=== PATIENT | male | born 1945 | race Caucasian/White ===

== ENCOUNTER 2018-11-19 14:53 | Outpatient (CLI) | payer MEDICARE ==
--- NOTE | 2018-11-20 14:41 | XRAY Report ---
Reason: OTHER SPECIFIED SOFT TISSUE DISORDERS Procedure Date: 11/19/2018 Accession Number: [id number] / [id number] Procedure: XRS - Foot 2 View RT CPT Code: FULL RESULT: EXAM: RIGHT FOOT RADIOGRAPHY EXAM DATE: 11/19/2018 03:01 PM. CLINICAL HISTORY: Other specified soft tissue disorders. Pain in the first metatarsophalangeal articulation. COMPARISON: None. TECHNIQUE: 3 views. FINDINGS: Bones: Normal. No fractures or bone lesions. No hallux valgus or metatarsus adductus. Joints: There is moderate to severe narrowing of the first metatarsophalangeal articulation, with osteophytic spurring at the dorsum of the base of the first proximal phalanx. The articulations of the foot elsewhere appear preserved. Soft Tissues: Normal. No soft tissue swelling. IMPRESSION: Focal degenerative changes at the first metatarsophalangeal articulation. RADIA
== END 2018-11-19 14:54 | disposition home or self-care (01) ==
LOC: DI.S 14:53
PROVIDERS: ATTEND Nurse Practitioner Family
DX: M19.072 Primary osteoarthritis, left ankle and foot (principal)

== ENCOUNTER 2019-08-27 10:21 | Outpatient (CLI) | payer MEDICARE ==
--- NOTE | 2019-08-27 16:40 | Ultrasound Report ---
Reason: HERNIA OF ABD WALL Procedure Date: 08/27/2019 Accession Number: [id number] / [id number] Procedure: US - Abdomen Limited CPT Code: Final Report FULL RESULT: PROCEDURE: Abdomen Limited INDICATIONS: HERNIA OF ABD WALL TECHNIQUE: Real-time focused scanning was performed of the abdomen, with image documentation. COMPARISON: None FINDINGS: Sonographic images of the umbilical region were obtained. There is diastases of the rectus musculature without visualized disruption of the linea alba. No herniation is identified. IMPRESSION: Diastases of the rectus musculature without herniation. Reviewed by: Celsa Hill MD on 08/27/2019 4:38 PM PDT Approved by: Celsa Hill MD on 08/27/2019 4:38 PM PDT Station ID: [id number]
== END 2019-08-27 10:22 | disposition home or self-care (01) ==
LOC: DI 10:21
PROVIDERS: ATTEND Nurse Practitioner Family
DX: M62.08 Separation of muscle (nontraumatic), other site (principal)
CPT/HCPCS: 76705

== ENCOUNTER 2019-09-23 09:49 | Outpatient (CLI) | payer MEDICARE ==
[2019-09-23] MEDS ORDERED: IOVERSOL 320 100 ML VIAL IVP ONE ×2 (09:58→11:15)
[2019-09-23] MEDS ORDERED: IOVERSOL 320 50 ML VIAL ONE (09:58)
[2019-09-23 10:41] LABS: BILIRUBIN,URINE NEGATIVE (NEGATIVE); CLARITY,URINE CLEAR (CLEAR); GLUCOSE, URINE (UA) NEGATIVE (NEGATIVE); KETONES,URINE (UA) NEGATIVE (NEGATIVE); LEUKOCYTE ESTERASE, URINE NEGATIVE (NEGATIVE); NITRITE,URINE NEGATIVE (NEGATIVE); OCCULT BLOOD,URINE NEGATIVE (NEGATIVE); PROTEIN,URINE NEGATIVE (NEGATIVE); UROBILINOGEN,URINE 0.2 (NORMAL) E.U./dL (NORMAL)
[2019-09-23 10:43] LABS: BASOPHILS # (AUTO) 0.1 10^3/uL (0.0-0.1); BASOPHILS % (AUTO) 1.4 %; EOSINOPHILS # (AUTO) 0.2 10^3/uL (0.0-0.7); EOSINOPHILS % (AUTO) 2.3 %; HGB - HEMOGLOBIN 15.8 g/dL (14.0-18.0); LYMPHOCYTES # (AUTO) 1.9 10^3/uL (1.5-3.5); LYMPHOCYTES % (AUTO) 20.6 %; MEAN CORPUSCULAR HGB CONC 34.2 g/dL (32.0-36.0); MEAN CORPUSCULAR VOLUME 102.4 fL (80.0-94.0); MEAN PLATELET VOLUME 9.4 fL (7.4-11.4); MONOCYTES # (AUTO) 0.8 10^3/uL (0.0-1.0); MONOCYTES % (AUTO) 8.5 %; NEUTROPHILS % (AUTO) 66.8 %; PLT - PLATELET COUNT 460 10^3/uL (130-450); RED BLOOD COUNT 4.51 10^6/uL (4.70-6.10); RED CELL DISTRIBUTION WIDTH 12.4 % (12.0-15.0)
[2019-09-23 10:56] LABS: ALBUMIN 4.4 g/dL (3.2-5.5); ALBUMIN/GLOBULIN RATIO 1.5 (1.0-2.2); ALKALINE PHOSPHATASE 76 IU/L (42-121); ALT ALANINE AMINOTRANSFERASE 26 IU/L (10-60); AST ASPARTATE AMINOTRANSFERASE 21 IU/L (10-42); BILIRUBIN,TOTAL 0.8 mg/dL (0.2-1.0); BUN - BLOOD UREA NITROGEN 19 mg/dL (6-20); CARBON DIOXIDE - CO2 27 mmol/L (21-32); CHLORIDE 105 mmol/L (101-111); CREATININE 0.9 mg/dL (0.6-1.2); GAMMA GLUTAMYL TRANSPEPTIDASE 17 IU/L (8-55); GLUCOSE 123 mg/dL (70-100); SODIUM 138 mmol/L (135-145); TOTAL PROTEIN 7.3 g/dL (6.7-8.2)
[2019-09-23] MEDS ORDERED: IOVERSOL 320 50 ML VIAL PO ONE (11:15)
--- NOTE | 2019-09-23 13:49 | CT Report ---
PROCEDURE: Abdomen/Pelvis W INDICATIONS: RLQ PAIN CONTRAST: IV CONTRAST: Optiray 320 ml: 100 PO CONTRAST: Optiray 320 ml50 TECHNIQUE: After the administration of oral and intravenous contrast, 5 mm thick sections acquired from the diap hragms to the symphysis. 5 mm thick coronal and sagittal reformats were acquired. For radiation dos e reduction, the following was used: automated exposure control, adjustment of mA and/or kV accordin g to patient size. COMPARISON: Ultrasound abdomen dated 08/27/2019. FINDINGS: Image quality: Excellent. ABDOMEN: Lung bases: Mild bibasilar atelectasis most pronounced over the medial right lung base. Heart size i s normal. Moderate-sized hiatal hernia. Solid organs: Liver and spleen are normal in size and enhancement. Gallbladder is unremarkable. Bi liary system is non dilated. Pancreas enhances normally. No adrenal nodules. Kidneys demonstrate n ormal size and enhancement, without hydronephrosis. There are multiple exophytic and partially exophy tic bilateral renal hypodensities, which measure near or at fluid attenuation. No suspicious features identified. Peritoneum and bowel: Bowel loops demonstrate normal wall thickness and caliber. Scattered colonic d iverticulosis without acute diverticulitis. No free fluid or air. Asymmetric wall thickening of the posterior wall of the gastric cardia just distal to the gastroesophageal junction. There is also sugg estion of mild asymmetric wall thickening of the anterior wall of the gastric cardia. Nodes and vessels: No retroperitoneal or mesenteric adenopathy by size criteria. Aorta and inferior vena cava are normal in size. Miscellaneous: Tiny fat-containing umbilical hernia without acute inflammation. Bilateral tiny inguin al hernias without acute inflammation. PELVIS: Genitourinary: Bladder wall thickness is normal. Miscellaneous: No inguinal hernias or adenopathy. Bones: No suspicious bony lesions. No vertebral body compression fractures. Multilevel lumbar spond ylosis. IMPRESSION: 1. CT abdomen and pelvis without acute abnormalities to explain patient's right lower quadrant pain. 2. Colonic diverticulosis without acute diverticulitis. 3. Minimal asymmetric wall thickening of the posterior wall of the gastric cardia and anterior wall o f the gastric cardia just distal to the gastroesophageal junction. Consider further evaluation with d irect visualization. 4. Moderate-sized hiatal hernia. 5. Multiple renal hypodensities favored to represent cysts. Consider dedicated renal ultrasound to fu rther evaluate. 6. Very small bilateral fat-containing inguinal hernias as well as fat-containing umbilical hernia wi thout acute inflammation. Reviewed by: Hernandez Rothman MD on 09/23/2019 1:47 PM PDT Approved by: Hernandez Rothman MD on 09/23/2019 1:47 PM PDT Station ID: [id number]
== END 2019-09-23 09:50 | disposition home or self-care (01) ==
LOC: DI 09:49
PROVIDERS: ATTEND Nurse Practitioner Family
DX: R10.31 Right lower quadrant pain (principal); K57.30 Diverticulosis of large intestine without perforation or abscess without bleeding; K44.9 Diaphragmatic hernia without obstruction or gangrene; K42.9 Umbilical hernia without obstruction or gangrene; K40.20 Bilateral inguinal hernia, without obstruction or gangrene, not specified as recurrent; R93.421 Abnormal radiologic findings on diagnostic imaging of right kidney; R93.422 Abnormal radiologic findings on diagnostic imaging of left kidney; R93.3 Abnormal findings on diagnostic imaging of other parts of digestive tract; R35.0 Frequency of micturition; I10 Essential (primary) hypertension; D75.89 Other specified diseases of blood and blood-forming organs; T56 Toxic effect of metals
CPT/HCPCS: 36415; 74177; 80053; 81003; 81599; 82977; 84153; 85025; 87086; Q9967

== ENCOUNTER 2019-10-03 14:18 | Outpatient (CLI) | payer OTHER, MEDICARE ==
--- NOTE | 2019-10-03 17:41 | Ultrasound Report ---
PROCEDURE: Retroperitoneal INDICATIONS: MULTIPLE RENAL HYPO DENSITIES TECHNIQUE: Real-time scanning was performed of the retroperitoneal organs, with image documentation. COMPARISON: Ultrasound abdomen 08/27/2019, CT abdomen pelvis 08/24/2019. FINDINGS: Kidneys: Kidneys are normal in size. Right kidney measures 12.2 cm long; left kidney measures 13.3 cm long. Right renal cortical thickness is 1.6 cm; left renal cortical thickness is 0.7 cm. No sana d masses, hydronephrosis, or nephrolithiasis. Multiple bilateral simple renal cysts are identified. The largest on the left measures 6.2 x 6.5 x 6.3 cm. The largest on the right measures 7.0 x 2.9 x 4. 0 cm. Bladder: Prevoid volume 514 cc. Postvoid residual 139 cc. Bilateral ureteral jets are identified. No bladder masses are identified. Prostate measures 3.8 x 5.2 x 3.8 cm. IMPRESSION: 1. Multiple bilateral renal cysts are noted. Reviewed by: Celsa Hill MD on 10/03/2019 5:39 PM PDT Approved by: Celsa Hill MD on 10/03/2019 5:39 PM PDT Station ID: [id number]
== END 2019-10-03 14:19 | disposition home or self-care (01) ==
LOC: DI 14:18
PROVIDERS: ATTEND Nurse Practitioner Family
DX: N28.9 Disorder of kidney and ureter, unspecified (principal); N28.1 Cyst of kidney, acquired
CPT/HCPCS: 76770

== ENCOUNTER 2019-12-10 12:10 | Outpatient (CLI) | payer MEDICARE | END 2019-12-10 12:11 | disposition home or self-care (01) | LOC: COV 12:10 | PROVIDERS: ATTEND Family Medicine | DX: Z20.828 Contact with and (suspected) exposure to other viral communicable diseases (principal) ==

== ENCOUNTER 2020-10-11 11:45 | Outpatient (CLI) | payer MEDICARE ==
--- NOTE | 2020-10-11 13:35 | XRAY Report ---
PROCEDURE: Lumbar Spine 2 View INDICATIONS: LOW BACK PAIN TECHNIQUE: 2 views of the lumbar spine were acquired. COMPARISON: None. FINDINGS: Bones: 5 [id number]-[id number] vertebrae are present. Trace retrolisthesis L2 on 3, L3 on 4, and L5 on S1. Trace anterolisthesis L4 on 5. Multilevel disc height loss, moderate at most levels, severe at L5-S1 . Severe facet arthropathy from L3 through S1. Moderate endplate spurring at all levels.. No vertebr al body compression fractures. No suspicious bony lesions. Soft tissues: Overlying bowel gas pattern is normal. Surgical clips project over the right sacral a la. No suspicious soft tissue calcifications. IMPRESSION: 1. Multilevel degenerative disc and facet joint changes, most severe at L5-S1. 2. Multilevel spondylolisthesis. Reviewed by: Siria Ramon MD on 10/11/2020 1:33 PM PDT Approved by: Siria Ramon MD on 10/11/2020 1:33 PM PDT Station ID: [id number]
== END 2020-10-11 11:46 | disposition home or self-care (01) ==
LOC: DI.S 11:45
PROVIDERS: ATTEND Nurse Practitioner Family
DX: M54.5 Low back pain (principal); M51.37 Other intervertebral disc degeneration, lumbosacral region; M43.17 Spondylolisthesis, lumbosacral region

== ENCOUNTER 2021-01-03 10:24 | Outpatient (CLI) | payer MEDICARE ==
--- NOTE | 2021-01-03 10:38 | XRAY Report ---
PROCEDURE: Chest 2 View X-Ray INDICATIONS: MALIGNANT MELANOMA TECHNIQUE: 2 view(s) of the chest. COMPARISON: None. FINDINGS: Surgical changes and devices: None. Lungs and pleura: No pleural effusions or pneumothorax. Lungs are clear. Mediastinum: Mediastinal contours are normal. Heart size is normal. Bones and chest wall: No suspicious bony abnormalities. Soft tissues appear unremarkable. IMPRESSION: No acute cardiopulmonary abnormality. Reviewed by: Marco Gandhi MD on 01/03/2021 10:37 AM PDT Approved by: Marco Gandhi MD on 01/03/2021 10:37 AM PDT Station ID: [id number]
== END 2021-01-03 10:25 | disposition home or self-care (01) ==
LOC: DI.S 10:24
PROVIDERS: ATTEND Nurse Practitioner Family
DX: Z85.820 Personal history of malignant melanoma of skin (principal)

== ENCOUNTER 2021-02-23 14:53 | Outpatient (CLI) | payer MEDICARE ==
--- NOTE | 2021-02-23 16:45 | XRAY Report ---
PROCEDURE: Shoulder 3 View LT INDICATIONS: PAIN OF LEFT SHOULDER JOINT TECHNIQUE: 3 views of the shoulder were acquired. COMPARISON: None. FINDINGS: Bones: No fractures or dislocations. No suspicious bony lesions. Visualized ribs appear intact. S evere acromioclavicular and moderate glenohumeral degenerative narrowing is present. Humeral osteophy te is present in the glenohumeral joint space. Soft tissues: No suspicious soft tissue calcifications. Tendinitis is noted. IMPRESSION: Degenerative changes as above. Reviewed by: Celsa Hill MD on 02/23/2021 4:43 PM PST Approved by: Celsa Hill MD on 02/23/2021 4:43 PM PST Station ID: [id number]
== END 2021-02-23 14:54 | disposition home or self-care (01) ==
LOC: DI.S 14:53
PROVIDERS: ATTEND Nurse Practitioner Family
DX: M19.012 Primary osteoarthritis, left shoulder (principal)

== ENCOUNTER 2021-04-06 09:14 | Outpatient (CLI) | payer MEDICARE | END 2021-04-06 09:15 | disposition home or self-care (01) | LOC: LAB.S 09:14 | PROVIDERS: ATTEND Surgery | DX: Z53.9 Procedure and treatment not carried out, unspecified reason (principal) ==

== ENCOUNTER 2021-04-07 09:30 | Outpatient (CLI) | payer MEDICARE | END 2021-04-07 09:31 | disposition home or self-care (01) | LOC: LAB.S 09:30 | PROVIDERS: ATTEND Surgery | DX: Z01.812 Encounter for preprocedural laboratory examination (principal); Z12.11 Encounter for screening for malignant neoplasm of colon; I48.0 Paroxysmal atrial fibrillation; Z20.822 Contact with and (suspected) exposure to COVID-19 ==

== ENCOUNTER 2021-04-09 09:24 | Day surgery (SDC) | payer MEDICARE, OTHER ==
[2021-04-09] MEDS ORDERED: LACTATED RINGERS 1,000 ML IV ONE (09:35)
--- NOTE | 2021-04-09 10:30 | ANESTHESIA ---
Pre-Anesthesia VS, & Labs - Diagnosis screening - Procedure colonoscopy Vital Signs: Temp Pulse Resp BP Pulse Ox 36.5 C 54 L 14 145/85 H 98 04/09/21 09:34 04/09/21 09:34 04/09/21 09:34 04/09/21 09:34 04/09/21 09:34 Height: 6 ft Weight (kg): 102 kg Body Mass Index: 30.4 BMI Classification: Obese - NPO >8 hours Home Medications and Allergies Home Medications: Ambulatory Orders Amlodipine Besylate [Norvasc] 10 mg PO DAILY 03/29/21 Aspirin [[place] Aspirin] 81 mg PO DAILY 03/29/21 Hydroxyurea [Hydrea] 500 mg PO DAILY 03/29/21 Rosuvastatin Calcium [Crestor] 20 mg PO DAILY 03/29/21 Amlodipine Besylate [Norvasc] 10 mg PO DAILY 03/29/21 Aspirin [[place] Aspirin] 81 mg PO DAILY 03/29/21 Hydroxyurea [Hydrea] 500 mg PO DAILY 03/29/21 Rosuvastatin Calcium [Crestor] 20 mg PO DAILY 03/29/21 Allergies/Adverse Reactions: Allergies Allergy/AdvReac Type Severity Reaction Status Date / Time oxycodone Allergy Unknown Unknown Unverified 04/06/21 15:09 Anes History & Medical History - Anesthetic History Anesthesia Complications: reports: No previous complications - Medical History Cardiovascular: reports: Hypertension, High cholesterol, Other Pulmonary: reports: None Gastrointestinal: reports: None, Diverticulitis Urinary: reports: None Musculoskeletal: reports: Osteoarthritis Endocrine/Autoimmune: reports: None Skin: reports: Other History of Cancer?: Yes - Surgical History General: reports: Appendectomy Eyes Ears Nose Throat (EENT): reports: Tonsil/Adenoidectomy Cardiothoracic: reports: Other Orthopedic: reports: Arthroscopic surgery Exam General: Alert, Oriented x3 Dental: WNL Mouth Opening: Greater than 4 Fingerbreadths Neck Mobility: Normal Mallampati classification: II Respiratory: Lungs clear Cardiovascular: Regular rate Plan Anesthesia Type: Total IV Consent for Procedure(s) Verified and Reviewed: Yes Code Status: Attempt Resuscitation ASA classification: 3-Severe systemic disease Is this case an emergency?: No
[2021-04-09] MEDS ORDERED: LIDOCAINE-MPF 2% 5 ML VIAL ONE (10:39)
[2021-04-09] MEDS ORDERED: PROPOFOL 500 MG/50 ML 500 MG/50 ML VIAL ONE (10:39)
[2021-04-09] MEDS ORDERED: LACTATED RINGERS 800 ML IV ONE (11:02)
[2021-04-09 11:24] VITALS: BP 119/80
--- NOTE | 2021-04-09 16:24 | ANESTHESIA POST OP EVALUATION ---
Anesthesia Post Eval - Post Anesthesia Eval Vitals: Last Vital Signs Temp 36.4 C L 04/09/21 11:23 Pulse 56 L 04/09/21 11:23 Resp 16 04/09/21 11:23 BP 119/80 04/09/21 11:23 Pulse Ox 98 04/09/21 11:23 CV Function Including HR & BP: Stable Pain Control: Satisfactory Nausea & Vomiting: Negative Mental Status: Baseline Respiratory Status: Airway Patent Hydration Status: Satisfactory Anesthesia Complications: None
== END 2021-04-09 09:25 | disposition home or self-care (01) ==
LOC: SDS 09:24
PROVIDERS: ATTEND Surgery
DX: Z12.11 Encounter for screening for malignant neoplasm of colon (principal); K57.30 Diverticulosis of large intestine without perforation or abscess without bleeding; I48.0 Paroxysmal atrial fibrillation; E66.9 Obesity, unspecified; Z68.30 Body mass index [BMI] 30.0-30.9, adult
CPT/HCPCS: 45378; J7120

== ENCOUNTER 2021-05-22 12:19 | Outpatient (CLI) | payer OTHER ==
[2021-05-22] MEDS ORDERED: lidocaine 1% 20 ML MDV ONE (12:33)
[2021-05-22] MEDS ORDERED: lidocaine 1% 20 ML MDV SUBQ ONE (13:35)
[2021-05-22] MEDS ORDERED: iohexoL-240 10 ML VIAL IVP ONE (13:40)
--- NOTE | 2021-05-22 16:17 | CT Report ---
PROCEDURE: UPPER EXTREMITY W - RT INDICATIONS: OSTEOARTHRITIS CONTRAST: Dilute intra-articular iodinated contrast material TECHNIQUE: After the intra-articular administration of 12 mL of dilute non-ionic contrast, 1 mm thick sections a cquired from the acromioclavicular joint to the inferior scapula, with coronal and sagittal reformatt ing. COMPARISON: Fluoroscopic images from arthrogram injection performed earlier the same day. FINDINGS: Image quality: Excellent. Bones: No acute fracture or dislocation. Severe degenerative changes are seen at the glenohumeral bety int with and diffuse full-thickness cartilage loss, prominent marginal osteophyte formation, subchond ral cystic changes, and remodeling of the medial humeral head and glenoid articular surfaces. There i s loss of posterior glenoid bone stock resulting in approximately 20 degrees of glenoid retroversion relative to the midplane of the scapula measured at the mid glenoid level. Moderate to severe degener ative changes are seen at the acromioclavicular joint. Degenerative changes are seen in the included cervical spine. Soft tissues: No definite intra-articular loose body is seen within the glenohumeral joint space. Th ere is mild to moderate synovial hypertrophy. The labrum appears diffusely degenerated with chronic d egenerative tearing. The proximal intra-articular portion of the biceps long head tendon appears to b e intact. No significant articular sided tearing of the rotator cuff tendons is seen. There is no sig nificant rotator cuff muscle atrophy. The included portions of the right lung are clear. IMPRESSION: 1.Severe glenohumeral osteoarthrosis with diffuse full-thickness cartilage loss, marginal osteophytes , and remodeling of the articular surfaces. There is loss of posterior glenoid bone stock with approx imately 20 degrees of glenoid retroversion relative to the midplane of the scapula at the mid glenoid level. Mild to moderate synovial hypertrophy is seen in the glenohumeral joint. 2.Diffuse glenoid labral degeneration and degenerative tearing. 3.No significant articular sided partial-thickness tear of the rotator cuff tendons is seen. No rotat or cuff muscle atrophy. The intraventricular biceps long head tendon appears to be intact. 4.Moderate to severe acromioclavicular osteoarthrosis. Reviewed by: Merlin Gu MD on 05/22/2021 4:16 PM PST Approved by: Merlin Gu MD on 05/22/2021 4:16 PM [facility] Station ID: [id number]
--- NOTE | 2021-05-22 17:05 | XRAY Report ---
PROCEDURE: Arthrogram Shoulder RT INDICATIONS: OSTEOARTHRITIS CONTRAST: CONTRAST: OMNIPAQUE 240 FLUOROSCOPY TIME: FLUORO TIME: 0.8 min and NUMBER IMAGES: 4 TECHNIQUE: The indications, alternatives, benefits, risks, and complications of the procedure were explained to the patient. Written informed consent was obtained and placed in the chart. The shoulder was examin ed fluoroscopically and a site for needle placement chosen for entry into the glenohumeral joint from an anterior approach. The skin was prepped and draped in the usual fashion, and 1% lidocaine infilt rated from skin down to joint capsule. A spinal needle was inserted into the glenohumeral joint, and a small amount of iodinated contrast media injected to confirm intra-articular placement of the need le tip. This was followed by approximately 12 mL dilute solution of a gadolinium containing MR contr ast agent. The needle was removed and a dressing was applied. The patient was given postprocedural instructions and sent to the MR suite for MR imaging. FINDINGS: A single fluoroscopic spot image demonstrates intra-articular location of injected iodinated contrast . IMPRESSION: Successful fluoroscopically guided administration of dilute Gadolinium solution into the shoulder dayna gillette for MR arthrogram. Reviewed by: Jazmin Grande MD on 05/22/2021 5:03 PM PST Approved by: Jazmin Grande MD on 05/22/2021 5:03 PM PST Station ID: [id number]
== END 2021-05-22 12:20 | disposition home or self-care (01) ==
LOC: DI 12:19
PROVIDERS: ATTEND Orthopaedic Surgery
DX: M19.012 Primary osteoarthritis, left shoulder (principal); S43.491A Other sprain of right shoulder joint, initial encounter
CPT/HCPCS: 23350; 73201; 77002; Q9966

== ENCOUNTER 2022-06-11 06:20 | Outpatient (CLI) | payer OTHER ==
[2022-06-11 06:55] LABS: CALCIUM 9.1 mg/dL (8.5-10.3); CREATININE 0.9 mg/dL (0.6-1.2); POTASSIUM 4.3 mmol/L (3.5-5.0)
[2022-06-11] MEDS ORDERED: GADOBUTROL 15 MMOL/15 ML VIAL ONE (07:18)
--- NOTE | 2022-06-11 15:40 | MRI Report ---
PROCEDURE: BRAIN W/WO INDICATIONS: HEADACHE, LEFT FACE HEAD NUMBNESS CONTRAST: gadavist 10.4ml TECHNIQUE: Noncontrast axial T1 spin echo, axial T2 fast spin echo, sagittal and axial FLAIR, coronal T2 fast sp in echo, axial gradient echo, axial diffusion and ADC through the brain. After the administration of contrast, axial and coronal T1 spin echo with fat saturation through the brain. COMPARISON: None. FINDINGS: Image quality: Excellent. CSF spaces: Basal cisterns are patent. No extra-axial fluid collections. Ventricles are normal in size and shape. Brain: No midline shift. No intracranial bleeds or masses. Mild diffuse cerebral volume loss. Mild degree of patchy high FLAIR signal within the periventricular and subcortical white matter. No abnor mal intracranial enhancement. There is cerebral volume loss for age. There is periventricular white matter chronic small vessel ischemic change. The brainstem appears normal. Diffusion-weighted imag es demonstrate no acute ischemic insults. No chronic ischemic insults. Normal intravascular flow vo ids are present. Skull and face: Calvarial marrow is normal in signal. Orbits appear normal. Sinuses: Sinuses and mastoids appear clear. IMPRESSION: 1. Mild volume loss and small vessel ischemic disease. 2. No acute process. No recent infarct. Reviewed by: Scott Tamayo MD on 06/11/2022 3:39 PM PDT Approved by: Scott Tamayo MD on 06/11/2022 3:39 PM PDT Station ID: [id number]
--- NOTE | 2022-06-11 15:41 | MRI Report ---
PROCEDURE: ANGIO HEAD WO INDICATIONS: HEADACHE, LEFT FACE HEAD NUMBNESS TECHNIQUE: Noncontrast axial 3-D [id number] MR angiogram, with 3-dimensional maximum intensity projection (M IP) reformats of the internal carotid arteries and posterior circulation then performed. COMPARISON: None. FINDINGS: Image quality: Excellent. Anterior circulation: Intracranial internal carotid arteries demonstrate normal size and intralumina l flow signal. The flow within the paired anterior cerebral arteries is normal and symmetric. The f low within the middle cerebral arteries is normal and symmetric. The anterior communicating artery i s seen. No stenoses, occlusions, or aneurysms. Posterior circulation: Visualized portions of the vertebral arteries demonstrate normal caliber, and join to form a normal appearing basilar artery. The flow within the posterior cerebral arteries is normal and symmetric. No stenoses, occlusions, or aneurysms. IMPRESSION: Negative cerebral MR angiography. Reviewed by: Scott Tamayo MD on 06/11/2022 3:39 PM PDT Approved by: Scott Tamayo MD on 06/11/2022 3:39 PM PDT Station ID: [id number]
--- NOTE | 2022-06-11 15:42 | MRI Report ---
PROCEDURE: ANGIO NECK W/WO INDICATIONS: HEADACHE, LEFT FACE HEAD NUMBNESS CONTRAST: gadavist 10.4ml TECHNIQUE: Axial and sagittal balanced GE through the neck. Coronal dynamic MRA after the administration of con trast in the arterial and venous phases, with rotating 3-dimensional maximum intensity projection (FL P) reformats constructed from subtraction images. COMPARISON: None. FINDINGS: Image quality: Excellent. Carotid system: Great vessels demonstrate a conventional anatomy as they arise from the aortic arch. The origins of the common carotid arteries appear normal. The calibers and courses of the common c arotid arteries are likewise normal. The carotid bifurcations appear normal bilaterally. The internal medicine nurse practitioner al carotid arteries are widely patent up to the [place]. Posterior circulation: The origins of the vertebral arteries are unremarkable. The more superior po rtions of the vertebral arteries demonstrate normal course and caliber. Vertebral arteries join to f orm a normal appearing basilar artery. Miscellaneous: Subclavian arteries are patent throughout. Pre-contrast images through the neck demo nstrate no soft tissue abnormalities. IMPRESSION: 1. No internal carotid artery stenosis bilaterally. 2. Patent bilateral vertebral arteries. Reviewed by: Scott Tamayo MD on 06/11/2022 3:40 PM PDT Approved by: Scott Tamayo MD on 06/11/2022 3:40 PM PDT Station ID: [id number]
[2022-06-11] MEDS ORDERED: GADOBUTROL 15 MMOL/15 ML VIAL IVP ONE (18:50)
== END 2022-06-11 06:21 | disposition home or self-care (01) ==
LOC: LAB 06:20
PROVIDERS: ATTEND Nurse Practitioner Family
DX: R51.9 Headache, unspecified (principal); G31.89 Other specified degenerative diseases of nervous system; I67.82 Cerebral ischemia
CPT/HCPCS: 36415; 70544; 70549; 70553; 80048; A9585

== ENCOUNTER 2022-07-04 15:18 | Outpatient (CLI) | payer OTHER ==
--- NOTE | 2022-07-04 19:01 | XRAY Report ---
PROCEDURE: Hip w/Pelvis 2-3V LT INDICATIONS: PAIN OF LEFT HIP JOINT TECHNIQUE: AP pelvis with lateral view(s) of the left hip(s). COMPARISON: None. FINDINGS: Bones: No fractures or dislocations. Pelvic ring appears intact. No suspicious bony lesions. Mild bilateral hip joint space narrowing without significant marginal osteophyte Soft tissues: The visualized bowel gas pattern is normal. No suspicious soft tissue calcifications. Surgical clips noted in the right lower quadrant IMPRESSION: Mild bilateral osteoarthritis Reviewed by: Zi Fine MD on 07/04/2022 6:00 PM [facility] Approved by: Zi Fine MD on 07/04/2022 6:00 PM [facility] Station ID: [id number]
== END 2022-07-04 15:19 | disposition home or self-care (01) ==
LOC: DI.S 15:18
PROVIDERS: ATTEND Nurse Practitioner Family
DX: M16.0 Bilateral primary osteoarthritis of hip (principal)

== ENCOUNTER 2022-07-29 07:06 | Outpatient (CLI) | payer OTHER ==
[2022-07-29 14:53] LABS: BASOPHILS # (AUTO) 0.1 10^3/uL (0.0-0.1); BASOPHILS % (AUTO) 1.3 %; EOSINOPHILS # (AUTO) 0.2 10^3/uL (0.0-0.7); EOSINOPHILS % (AUTO) 1.5 %; HCT - HEMATOCRIT 44.1 % (42.0-52.0); HGB - HEMOGLOBIN 14.5 g/dL (14.0-18.0); LYMPHOCYTES # (AUTO) 2.4 10^3/uL (1.5-3.5); LYMPHOCYTES % (AUTO) 22.7 %; MEAN CORPUSCULAR HEMOGLOBIN 35.4 pg (27.0-31.0); MEAN CORPUSCULAR HGB CONC 32.9 g/dL (32.0-36.0); MEAN CORPUSCULAR VOLUME 107.6 fL (80.0-94.0); MEAN PLATELET VOLUME 9.8 fL (7.4-11.4); MONOCYTES % (AUTO) 9.6 %; NEUTROPHILS # (AUTO) 6.8 10^3/uL (1.5-6.6); NEUTROPHILS % (AUTO) 64.6 %; PLT - PLATELET COUNT 435 10^3/uL (130-450); RED CELL DISTRIBUTION WIDTH 13.1 % (12.0-15.0); WHITE BLOOD COUNT 10.6 x10^3/uL (4.8-10.8)
[2022-07-29 15:34] LABS: CALCIUM 9.1 mg/dL (8.5-10.3); CREATININE 0.9 mg/dL (0.6-1.2); POTASSIUM 4.3 mmol/L (3.5-5.0)
== END 2022-07-29 07:07 | disposition home or self-care (01) ==
LOC: LAB.S 07:06
PROVIDERS: ATTEND Orthopaedic Surgery
DX: Z01.818 Encounter for other preprocedural examination (principal); M17.11 Unilateral primary osteoarthritis, right knee
CPT/HCPCS: 36415; 80048; 85025

== ENCOUNTER 2023-09-10 11:01 | Outpatient (CLI) | payer OTHER ==
[2023-09-10 16:00] LABS: ALBUMIN 4.3 g/dL (3.2-5.5)
[2023-09-10 16:06] LABS: BILIRUBIN,DIRECT 0.1 mg/dL (0.03-0.18); BILIRUBIN,TOTAL 0.5 mg/dL (0.2-1.0); TOTAL PROTEIN 6.8 g/dL (6.4-8.9)
== END 2023-09-10 11:02 | disposition home or self-care (01) ==
LOC: LAB.S 11:01
PROVIDERS: ATTEND Physician Assistant Medical
DX: B35.1 Tinea unguium (principal); Z79.899 Other long term (current) drug therapy
CPT/HCPCS: 36415; 80076